=== PATIENT | female | born 1950 | race Caucasian/White ===

== ENCOUNTER 2022-09-18 09:24 | Emergency (ER) | payer BC, OTHER ==
[~2022-09-18] VITALS: Ht 165.1 cm; Wt 77.0 kg
[2022-09-18 11:08] VITALS: BP 173/83
[2022-09-18] MEDS ORDERED: NEOMYCIN-BACITRACIN-POLYM UNITDOSE PKG TOP OINT TOP ONE (11:45)
[2022-09-18] MEDS ORDERED: TETANUS-DIPTH-ACEL PERTUSSIS 0.5ML SYR Tdap IM ONE (11:45)
[2022-09-18] MEDS ORDERED: CEPH-510 PO (12:55)
[2022-09-18] MEDS ORDERED: ACET1CAP14 PO (12:55)
== END 2022-09-18 12:55 | disposition home or self-care (01) ==
LOC: ER 09:24
DX: S01.81XA Laceration without foreign body of other part of head, initial encounter (principal); W19.XXXA Unspecified fall, initial encounter; Y93.89 Activity, other specified; Y92.89 Other specified places as the place of occurrence of the external cause; Y99.8 Other external cause status
CPT/HCPCS: 70450; 72040; 90471; 90715